=== PATIENT | female | born 1975 | race Caucasian/White ===

== ENCOUNTER 2016-07-16 12:04 | Emergency (ER) | payer MEDICAID ==
[~2016-07-16] VITALS: Ht 162.6 cm; Wt 68.1 kg
[2016-07-16] MEDS ORDERED: ONDANSETRON 2MG/ML, 2ML IVPush ONE (13:30)
[2016-07-16] MEDS ORDERED: SODIUM CHLORIDE 0.9% 1,000ML IVBOLUS ONE (13:30)
[2016-07-16] MEDS ORDERED: FAMOTIDINE 20 MG/2 ML IVP ONE (13:30)
[2016-07-16] MEDS ORDERED: SODIUM CHLORIDE FLUSH 10ML SYR IVF ONE (13:30)
[2016-07-16 13:38] LABS: BLOOD UREA NITROGEN 13 mg/dL (7-18)
[2016-07-16 13:46] LABS: ASPARTATE AMINO TRANSFERASE 16 U/L (15-37)
[2016-07-16] MEDS ORDERED: ONDANSETRON 2MG/ML, 2ML ONE (15:20)
[2016-07-16] MEDS ORDERED: FAMOTIDINE 20 MG/2 ML ONE (15:20)
[2016-07-16] MEDS ORDERED: MAALOX/HYOSCYAMINE/LIDOCAINE 45 ML BOTTLE PO ONE (15:30)
[2016-07-16] MEDS ORDERED: MAALOX/HYOSCYAMINE/LIDOCAINE 45 ML BOTTLE ONE (15:35)
[2016-07-16 16:57] LABS: PATH.CAST-FLAG NOT PRESENT; SPERM-FLAG NOT PRESENT; SRC-FLAG NOT PRESENT; XTAL-FLAG NOT PRESENT; YLC-FLAG NOT PRESENT
[2016-07-16 17:03] VITALS: BP 117/73
== END 2016-07-16 17:09 | disposition home or self-care (01) ==
LOC: ED 16:12
DX: K29.00 Acute gastritis without bleeding (principal)
CPT/HCPCS: 36415; 76700; 80053; 81001; 83690; 84703; 85025; 96361; 96374; 96375; 99285; J2405; J7030; S0028

== ENCOUNTER 2017-07-25 17:41 | Emergency (ER) | payer MEDICAID ==
[~2017-07-25] VITALS: Ht 162.6 cm; Wt 67.0 kg
[2017-07-25 17:43] VITALS: BP 130/79
[2017-07-25] MEDS ORDERED: CEFAZOLIN 1,000 MG ONE (19:11)
[2017-07-25] MEDS ORDERED: CEFAZOLIN 1,000 MG IM ONE (19:30)
== END 2017-07-25 19:40 | disposition home or self-care (01) ==
LOC: ED 19:38
DX: L03.115 Cellulitis of right lower limb (principal)
CPT/HCPCS: 73610; 73630; 96372; 99284; J0690

== ENCOUNTER 2017-10-01 15:15 | Emergency (ER) | payer MEDICAID ==
[~2017-10-01] VITALS: Ht 165.1 cm; Wt 65.0 kg
[2017-10-01 15:50] LABS: BASOPHILS % (AUTO) 1 % (0-1); EOSINOPHILS # (AUTO) 0.08 x10^3/uL (0-0.4); EOSINOPHILS % (AUTO) 1 % (1-7); LYMPHOCYTES # (AUTO) 2.03 x10^3/uL (1-3.4); LYMPHOCYTES % (AUTO) 21 % (22-44); MD NO; MEAN CORPUSCULAR HEMOGLOBIN 31.9 pg (27.0-34.8); MEAN CORPUSCULAR HGB CONC 34.4 g/dL (32.4-35.8); MEAN CORPUSCULAR VOLUME 92.9 fL (80-100); MEAN PLATELET VOLUME 9.4 fL (7.4-10.4); MONOCYTES # (AUTO) 0.72 x10^3/uL (0.2-0.8); MONOCYTES % (AUTO) 8 % (2-9); NEUTROPHILS # (AUTO) 6.57 x10^3/uL (1.8-6.8); NEUTROPHILS % (AUTO) 69 % (42-75); PLATELET COUNT 246 x10^3/uL (130-400); RED BLOOD COUNT 4.77 x10^6/uL (3.82-5.3); RED CELL DISTRIBUTION WIDTH 13.9 % (9.6-15.2)
[2017-10-01] MEDS ORDERED: DIPHENHYDRAMINE 50 MG/ML, 1ML IVPush ONE (16:00)
[2017-10-01] MEDS ORDERED: methylPREDNISolone SOD SUCC 125 MG/2 ML IVPush ONE (16:00)
[2017-10-01 16:02] LABS: ANION GAP 10 mmol/L (5-15); CALCIUM 8.6 mg/dL (8.5-10.1); CHLORIDE 110 mmol/L (98-107); SALICYLATE LEVEL 2.8 mg/dL (2.8-20.0)
[2017-10-01 16:05] LABS: ALANINE AMINOTRANSFERASE 18 U/L (12-78); ALKALINE PHOSPHATASE 53 U/L (45-117); BILIRUBIN,TOTAL 0.8 mg/dL (0.2-1.0); CREATININE 1.07 mg/dL (0.55-1.02); TOTAL PROTEIN 7.2 g/dL (6.4-8.2)
[2017-10-01 16:08] LABS: ACETAMINOPHEN < 2 mcg/mL (10-30)
[2017-10-01 16:37] LABS: AMPHETAMINE SCREEN, URINE Negative (Negative); BARBITURATE SCREEN, URINE Negative (Negative); BENZODIAZEPINE SCREEN, URINE Negative (Negative); CANNABINOID SCREEN, URINE Positive (Negative); COCAINE SCREEN, URINE Negative (Negative); METHADONE SCREEN, URINE Negative (Negative); OPIATE SCREEN, URINE Negative (Negative)
[2017-10-01 18:48] VITALS: BP 128/74
== END 2017-10-01 19:11 | disposition home or self-care (01) ==
LOC: MERGE 15:15 → EDBD 15:15 → ED 17:05
DX: S61.512A Laceration without foreign body of left wrist, initial encounter (principal); F10.120 Alcohol abuse with intoxication, uncomplicated; X78.1XXA Intentional self-harm by knife, initial encounter; Y93.89 Activity, other specified; Y99.8 Other external cause status; Y92.89 Other specified places as the place of occurrence of the external cause
CPT/HCPCS: 12002; 36415; 80053; 80307; 80329; 85025; 99284; 99285; G0480

== ENCOUNTER 2019-09-14 09:22 | Emergency (ER) | payer MEDICAID ==
[~2019-09-14] VITALS: Ht 162.6 cm; Wt 57.4 kg
[2019-09-14 09:58] LABS: BASOPHILS # (AUTO) 0.03 x10^3/uL (0-0.1); BASOPHILS % (AUTO) 0 % (0-1); EOSINOPHILS # (AUTO) 0.07 x10^3/uL (0-0.4); EOSINOPHILS % (AUTO) 1 % (1-7); LYMPHOCYTES # (AUTO) 0.93 x10^3/uL (1-3.4); LYMPHOCYTES % (AUTO) 10 % (22-44); MD NO; MEAN CORPUSCULAR HEMOGLOBIN 31.1 pg (27.0-34.8); MEAN CORPUSCULAR HGB CONC 34.1 g/dL (32.4-35.8); MEAN PLATELET VOLUME 8.7 fL (7.4-10.4); MONOCYTES # (AUTO) 0.85 x10^3/uL (0.2-0.8); MONOCYTES % (AUTO) 9 % (2-9); NEUTROPHILS # (AUTO) 7.84 x10^3/uL (1.8-6.8); NEUTROPHILS % (AUTO) 81 % (42-75); PLATELET COUNT 213 x10^3/uL (130-400); RED BLOOD COUNT 4.53 x10^6/uL (3.82-5.3); RED CELL DISTRIBUTION WIDTH 13.7 % (9.6-15.2)
[2019-09-14] MEDS ORDERED: KETOROLAC 30 MG/1 ML IVPush ONE (10:00)
[2019-09-14] MEDS ORDERED: AMPICILLIN/SULBACTAM 3 GM in SODIUM CHLORIDE 0.9% 100 ML IV ONE (10:00)
[2019-09-14] MEDS ORDERED: SODIUM CHLORIDE FLUSH 10ML SYR IVF ONE (10:00)
[2019-09-14 10:05] LABS: ALBUMIN 3.7 g/dL (3.4-5.0); ANION GAP 7 mmol/L (5-15); CALCIUM 8.8 mg/dL (8.5-10.1); CHLORIDE 105 mmol/L (98-107); CREATININE 0.69 mg/dL (0.55-1.02)
[2019-09-14] MEDS ORDERED: OMNIPAQUE 350 MG/ML, 75ML BOTTLE ONE (10:30)
[2019-09-14] MEDS ORDERED: KETOROLAC 30 MG/1 ML ONE (10:31)
--- NOTE | 2019-09-14 10:33 | NUR ---
PATIENT HERE FOR RIGHT SIDED FACIAL SWELLING AND PAIN THAT RADIATES FROM HER HEAR TO HER JAW, PER PATIENT SWELLING STARTED LAST NIGHT 09/13/2019.
--- NOTE | 2019-09-14 10:41 | NUR ---
30 MG IV TORADOL GIVEN, AND UNASYN HUNG AT 200 mLS/HR. PATIENT C/O OF 08/26 DENTAL/FACIAL PAIN. NO FURTHER NEEDS AT THIS TIME.
[2019-09-14 12:05] VITALS: BP 102/67
--- NOTE | 2019-09-14 12:14 | NUR ---
Patient given discharge instructions and they have confirmed that they understand the instructions. Patient ambulatory with steady gait. Addendum: 09/14/19 at 1215 by RANJIT IV REMOVED WITH TIP INTACT, ALL PATIENT BELONGINGS GATHERED BY PATIENT.
== END 2019-09-14 12:14 | disposition home or self-care (01) ==
LOC: ED 11:55
DX: K02.9 Dental caries, unspecified (principal); R22.0 Localized swelling, mass and lump, head; F17.200 Nicotine dependence, unspecified, uncomplicated
CPT/HCPCS: 36415; 70487; 80048; 82040; 84703; 85025; 96365; 96366; 96375; 99285; J0295; J1885; Q9967